=== PATIENT | male | born 1965 | race Native Hawaiian/Other Pacific Islander ===

== ENCOUNTER → 2021-12-19 12:19 | Outpatient (CLI) | payer OTHER, SELFPAY ==
--- NOTE | 2021-12-19 | DI.RAD.S_ITS ---
PROCEDURE: FL SHOULDER INJECTION MR/CT RT INDICATIONS: PAIN IN RIGHT SHOULDER COMPARISON: None. TECHNIQUE: The indications, alternatives, benefits, risks, and complications of the procedure were explained to the patient. Written informed consent was obtained and placed in the chart. The shoulder was examined fluoroscopically and a site for needle placement chosen for entry into the glenohumeral joint from an anterior approach. The skin was prepped and draped in a sterile fashion, and 1% lidocaine infiltrated from skin down to joint capsule. A spinal needle was inserted into the glenohumeral joint, and a small amount of iodinated contrast media injected to confirm intra-articular placement of the needle tip. This was followed by approximately 12 mL dilute solution of a gadolinium containing MR contrast agent. The needle was removed and a dressing was applied. The patient was given postprocedural instructions and sent to the MR suite for MR imaging. FINDINGS: A single fluoroscopic spot image demonstrates intra-articular location of injected iodinated contrast. IMPRESSION: Successful fluoroscopically guided administration of dilute Gadolinium solution into the shoulder joint for MR arthrogram. Dictated by: Shilpi Milton MD, PhD on 12/19/2021 at 15:19 Approved by: Shilpi Milton MD, PhD on 12/19/2021 at 15:19
--- NOTE | 2021-12-19 | DI.MRI.S_ITS ---
PROCEDURE: MR SHOULDER RT W CON INDICATIONS: PAIN IN SHOULDER TECHNIQUE: After the administration of 12 mL of dilute intra-articular Gadolinium contrast, oblique coronal T1 and T2 spin echo with fat saturation, oblique sagittal T1 spin echo with and without fat saturation, oblique sagittal T2 fast spin echo with fat saturation, axial T1 spin echo with fat saturation through the shoulder. COMPARISON: [facility], , CT SHOULDER INJECTION MR/CT RT, 12/19/2021, 13:11. FINDINGS: Image quality: Partially degraded by motion and metallic artifact Rotator cuff: There is a focal full-thickness tear within the anterior supraspinatus tendon at humeral insertion site measuring roughly 10 mm anteroposterior. Mild T2 signal elevation within the remainder of the supraspinatus as well as the mid and anterior infraspinatus tendon at the humeral insertion site. High-grade tearing of the upper subscapularis tendon at the humeral insertion site. Bones and bursae: No bone marrow contusions or fractures. Acromion and acromioclavicular joint are not well seen secondary to metallic artifact. Capsule and soft tissues: The labrum and glenohumeral ligaments appear intact. The long head of the biceps tendon demonstrates normal location and morphology. The rotator interval appears normal, without fibrosis. The coracohumeral ligament is of normal thickness. No intra-articular bodies. IMPRESSION: 1. Supraspinatus and infraspinatus tendinopathy. 2. Full-thickness tearing of the anterior supraspinatus tendon. Dictated by: Giovanni Arguello M.D. on 12/19/2021 at 15:14 Approved by: Giovanni Arguello M.D. on 12/19/2021 at 15:17
== END ==
PROVIDERS: Referring Provider Family Medicine; Visit Provider Family Medicine
DX: S46.011A Strain of muscle(s) and tendon(s) of the rotator cuff of right shoulder, initial encounter (principal); M25.511 Pain in right shoulder; X58.XXXA Exposure to other specified factors, initial encounter
CPT/HCPCS: 23350; 73222; 77002